=== PATIENT | female | born 1965 | race Caucasian/White ===

== ENCOUNTER 2017-02-19 08:00 | Day surgery (SDC) | payer OTHER ==
[~2017-02-19] VITALS: Ht 167.6 cm; Wt 76.2 kg
[~2017-02-19 08:00] MED LIST: ALBU8.5H2 INHALATION; B1/B1TAB5 PO; CYCL10TA9 PO; HYDR-656 PO; IBUP-1827 PO; OXYC-466 PO; PRE20 PO; Sodium Chloride LOK Flush 10 mL Syringe IV PRN; TAMS0.4C98 PO; fentaNYL-PF 50 mCg/mL 2 mL Inj IVPUSH PRN
[2017-02-19] MEDS: 0.9% Sodium Chloride 1,000 ML IV SCH ×3 (08:21→09:17)
[2017-02-19 08:24] VITALS: BP 133/92; PULSE 92; RESP 16; O2SAT 96
[2017-02-19 09:26] VITALS: BP 125/81; PULSE 73; RESP 16; O2SAT 96
[2017-02-19 09:58] VITALS: BP 119/75; PULSE 80; RESP 16; O2SAT 99
--- NOTE | 2017-02-19 10:25 | ENDO ---
[address] [address] ENDOSCOPY PROCEDURE PATIENT: ABENA DAVIES : 1965 MR#: [id number] ADMIT: 02/19/2017 JOB ID: [id number] PRIMARY PROVIDER: Gurpreet Gupta MD PROCEDURE: Colonoscopy with hot snare polypectomy and cold forceps polypectomy. INDICATIONS: A 51-year-old female who reports for colon cancer screening. EQUIPMENT: PCF-H180-AL. SEDATION: 9 mg Versed, 200 mcg fentanyl. COMPLICATIONS: None identified. BOWEL PREPARATION: Fair. Adequate exam. PROCEDURE INFORMATION: After the risks and benefits were explained, written and verbal informed consent was obtained. The patient was brought into the endoscopy suite and placed into the left lateral decubitus position. Sedation was achieved using the above-stated medications with the addition of oxygen via nasal cannula. A digital rectal examination was accomplished. No significant pathology apart from some mild internal, external, nonbleeding, nonthrombosed hemorrhoids. The scope was introduced into the rectum and advanced under direct visualization to the level of the cecum, as identified by the appendiceal orifice and ileocecal valve. The scope was slowly withdrawn to carefully examine the mucosa for any defects or lesions. Retroflexed views were avoided in the rectum. Multiple direct views were made through the dentate line for exclusion of pathology. The colon was decompressed, the scope removed from the patient who tolerated the procedure well. FINDINGS: In the cecum, there was an approximately 9-10 mm semi-sessile polyp removed with hot snare. There was a smaller diminutive polyp, perhaps 2-3 mm, removed with cold forceps. In the rectum, there was an approximately 6 mm polyp removed with hot snare. No other significant pathology was appreciated throughout. ENDOSCOPIC DIAGNOSES: Colon polyps. RECOMMENDATIONS: 1. Await histopathology. 2. If adenomatous features are identified, then repeat colonoscopy in three years.
--- NOTE | 2017-02-20 11:13 | PATH ---
SURGICAL PATHOLOGY Attending Physician:Khari Leon CASE STATUS: Signed Out PATIENT NAME: ABENA DAVIES PID: [id number] : 1965 DATE COLLECTED:02/19/2017 15:06 SPECIMEN: 1: Colon, Biopsy 2: Rectum, Biopsy CLINICAL HISTORY: 1. CECAL POLYPS X2 2. 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 TUBULAR ADENOMA INVOLVING SINGLE BIOPSY FRAGMENT. 2.RECTAL POLYP: HYPERPLASTIC POLYP. ICD10 CODE D12.0 GROSS DESCRIPTION: The specimen is received in two formalin filled containers labeled with the patient's name. 1). The specimen is sublabeled "cecal polyp" and consists of 5 portions of tissue which aggregate to 0.9 x 0.8 x 0.6 CM. The specimen is entirely submitted in cassette 1A. 2). The specimen is sublabeled "rectal polyp" and consists of a 0.5 x 0.5 x 0.5 CM portion of tissue which is entirely submitted in cassette 2A. 02/19/2017 [facility] MICRO DESCRIPTION: See diagnosis. ICD-9 CODES: CPT CODES: 1: 03720 2: 21662 Electronically Signed Out Reji Live MD [facility] Pathology [facility] [address] [place] [address] Technical component performed at [facility], [address] [place] [address] Ave[address], [place], [address]
== END 2017-02-19 23:59 | disposition home or self-care (01) ==
LOC: END 08:00
PROVIDERS: ATTEND Internal Medicine Gastroenterology
DX: Z12.11 Encounter for screening for malignant neoplasm of colon (principal); D12.0 Benign neoplasm of cecum; K62.1 Rectal polyp; K64.8 Other hemorrhoids; K64.4 Residual hemorrhoidal skin tags; L25.9 Unspecified contact dermatitis, unspecified cause; Z79.51 Long term (current) use of inhaled steroids; Z79.52 Long term (current) use of systemic steroids
CPT/HCPCS: 45380; 45385; 99153; G0500; J7030

== ENCOUNTER 2017-05-24 13:30 | Emergency (ER) | payer OTHER ==
[~2017-05-24] VITALS: Ht 165.1 cm; Wt 76.4 kg
[2017-05-24 13:42] VITALS: BP 130/90; PULSE 81; RESP 17; O2SAT 99
== END 2017-05-24 14:45 | disposition left against medical advice (07) ==
LOC: SED 13:30
DX: R42 Dizziness and giddiness (principal); M54.9 Dorsalgia, unspecified; Z53.29 Procedure and treatment not carried out because of patient's decision for other reasons

== ENCOUNTER 2017-06-29 16:17 | Emergency (ER) | payer OTHER ==
[~2017-06-29] VITALS: Ht 165.1 cm; Wt 75.0 kg
[2017-06-29 16:24] VITALS: BP 133/89; PULSE 108; RESP 16; O2SAT 99
--- NOTE | 2017-06-29 18:16 | ED.REPORT ---
HPI-Abd Pain F 2 and Over Date of Service Jun 29, 2017 ED Provider: Jeff Rodriguez DO Mrs. Vera is a 52-year-old female with a history of fibromyalgia presents to the ED a week after a syncopal episode which led to a ground-level fall. Patient noted that she was washing dishes and the next moment she found herself on aching up from the floor. She had some bruising on her forehead at that time which has since resolved. She has some neck stiffness and some left hip pain which are both chronic but exacerbated by the fall. She notes that her neck is very fragile due to multiple surgeries (ACDF) she wanted to come into the ED just to make sure she was okay. Recently she denies any chest pain, shortness of breath, vision changes, slurred speech, abdominal pain, nausea, or vomiting. Nursing Notes Stated Complaint: GLF- HEAD TRAUMA, NECK AND HIP PAIN Chief Complaint: Multiple Trauma/Fall Allergies: Coded Allergies: Penicillins (Verified Allergy, Unknown, when a child, 06/29/17) Sulfa (Sulfonamide Antibiotics) (Verified Allergy, Unknown, cant remember , 06/29/17) General Time Seen by MD: 16:36 Chief Complaint Other Syncopal episodes that resulted in a ground-level fall. Hx Obtained from: Patient Arrived by: Walk-in Sudden in Onset?: Yes Onset Occurred: 1 week ago Context of Onset: Other (standing washing dishes) Symptom Duration: Duration unknown Progression since onset: Resolved Caused by: Fall Location: : Pelvis (chronic left lateral hip pain exacerbated by ground-level fall.) Quality: Aching, Stabbing Radiation: : Does not radiate Severity: Current: Pain level 6 out of 10 Associated with: Denies: Chest pain, Fever, Nausea, Shortness of breath Pertinent Negative: Pt denies other symptoms Risk Factors PERC Rule Age 50 or over Past Medical History Past Medical History Fibromyalgia Past Surgical History ACDF 3 Family History Noncontributory Smoking History Heavy Tobacco Smoker Ambulatory Status Ambulatory Status: Independent Review of Systems Basic Review of Systems Eyes: Vision NL, No discharge ENT: Hearing NL, No pain, No nasal congestion, No pharyngeal pain Hematologic: No bleeding, No bruising Endocrine: No cold intolerance, No heat intolerance, No weight gain, No weight loss Neurologic: NL mental status, No weakness, No numbness Psychiatric: Normal thought content Respiratory: Denies: Shortness of breath, Wheezing Cardiovascular: Denies: Arrhythmia, Chest pain, Edema GI: Denies: Abdominal pain, Nausea, Vomiting Musculoskeletal: Reports: Extremity pain Complete sys rev & neg: except as marked. Physical Exam Initial Vital Signs Vital Signs (First) Date Time Temp Pulse Resp B/P Pulse Ox O2 Delivery O2 Flow Rate FiO2 06/29/17 16:24 36.7 108 16 133/89 99 Room Air Initial VS: Reviewed Head / Eyes: Atraumatic, Normocephalic, PERRL ENT: Mucous membranes moist, Conjunctiva normal, No scleral icterus Neck: Supple, Non-tender, Full range of motion Lymphatic: No lymphadenopathy Extremities: Vascular intact, Neuro intact, No swelling, No tenderness Skin: Warm, Dry, No cyanosis Neurologic: Alert, Oriented, Nonfocal Psychiatric: Mood/affect normal, Behavior normal, Normal thought content Respiratory / Chest: Breath sounds NL, Breath sounds = bilat, No respiratory distress, No rales, No rhonchi, No wheezing Cardiovascular: Heart rate NL, Regular rhythm, Heart sounds NL, Peripheral circulation NL Neurologic: Orientation NL for age, Speech NL for age, No motor deficits, No sensory deficits Lower Extremity / Pelvis / MS: Full range of motion, Neurologic intact, Vascular intact, No edema Left Thigh: Positive Tenderness present... (Mild tenderness to palpation of the left greater trochanter.) Re-Eval/Medical Decision Med Decision/Clinical Course Mrs. Vera is a 52-year-old female who presents with a syncopal episode. Most likely cause her syncopal episode is most likely orthostatic or postural hypotension. Her neurological exam showed no focal deficits. No signs of trauma or bleeding. Head CT is not necessary at this time. Discharge & Departure Impression: Primary Impression: Syncope Syncope type: unspecified Qualified Code: R55 - Syncope and collapse Additional Impression: Head trauma Encounter type: initial encounter Qualified Code: S09.90XA - Unspecified injury of head, initial encounter Disposition: Home Discharge Condition All VS Reviewed: Yes Condition: Stable Patient Instructions: Syncope (ED) Additional Instructions: We performed a thorough neurologic exam in the ED today. I do not believe her fall has caused a skull fracture or bleeding. I recommend that you follow up with your primary care provider for further workup of her syncopal episode with an EKG and lab work. Referrals: Gurpreet Gupta MD (PCP) Attending Statement I personally took a history performed a physical examination. This is a healthy and very pleasant 52-year-old female who suffered a syncopal episode several days ago. In doing so she did smack her head. She is at a mild headache since then. She was referred to the emergency department for evaluation. On my evaluation she is awake alert oriented 4. Her vital signs were stable. She had no signs of traumatic brain injury. No signs of skull fracture. I was not specifically concerned about head injury because it has been I believe a week. What concerned me was the syncopal episode. My recommendations were for EKG, laboratory work including d-dimer and troponin. After discussing this with Mrs. Vera she has opted to have evaluation by her primary care physician. It is been 7 days since she has passed out. I think this is reasonable. I certainly would not force her to undergo these tests. I think a number of them can and should be performed on the outpatient basis. She understands that there is a bit of risk here. She is willing to take that risk here she will follow up closely. I explained that there could be an underlying arrhythmia, anemia, heart injury, pulmonary emboli or any number of things that led syncopal episode. She will follow up as instructed. I did tell her that these illnesses can and often are life-threatening. Char Leonard DO Jun 29, 2017 18:16 Jeff Rodriguez DO Jun 30, 2017 12:14
[2017-06-29 19:38] VITALS: BP 134/97; PULSE 99; RESP 20; O2SAT 98
== END 2017-06-29 19:38 | disposition home or self-care (01) ==
LOC: SED 16:17
DX: R55 Syncope and collapse (principal); S09.8XXA Other specified injuries of head, initial encounter; M25.552 Pain in left hip; M54.2 Cervicalgia; W01.0XXA Fall on same level from slipping, tripping and stumbling without subsequent striking against object, initial encounter; Y93.G1 Activity, food preparation and clean up; Y99.8 Other external cause status; Y92.000 Kitchen of unspecified non-institutional (private) residence as the place of occurrence of the external cause; M79.7 Fibromyalgia; F17.200 Nicotine dependence, unspecified, uncomplicated; F12.10 Cannabis abuse, uncomplicated; Z88.2 Allergy status to sulfonamides; Z88.0 Allergy status to penicillin